=== PATIENT | female | born 1945 | race Caucasian/White ===

== ENCOUNTER → 2017-01-23 | Outpatient (CLI) | payer MEDICARE, OTHER ==
[~2017-01-23] MED LIST: CALC-586 PO; DENO60DI INJ; FLUT9.9S EA NOSTRIL; MULT-806 PO
== END ==
LOC: WC.BC 15:10
PROVIDERS: ATTEND Internal Medicine Medical Oncology
DX: C50.311 Malignant neoplasm of lower-inner quadrant of right female breast (principal); N64.59 Other signs and symptoms in breast; N64.89 Other specified disorders of breast; Z98.890 Other specified postprocedural states; C50.912 Malignant neoplasm of unspecified site of left female breast
CPT/HCPCS: G0206; G0279